=== PATIENT | female | born 1985 | race African-American/Black ===

== ENCOUNTER 2018-02-12 14:16 | Emergency (ER) | payer OTHER ==
[~2018-02-12] VITALS: Ht 162.6 cm; Wt 106.6 kg
--- OUTSIDE RECORDS SUMMARY | 2018-02-12 14:18 | XMS REPORT | Summary of Care ---
Author Author [facility] Organization [facility] Address Unknown Phone Unavailable Encounter HQ Encntr_alias(FIN) [id number] Date(s): 06/10/17 - 06/10/17 [facility] [address], [address] [place] [address]- [phone] Attending Physician: Elke Mccarthy DO Vital Signs No data available for this section Problem List Condition Effective Dates Status Health Status Informant Morbid Active obesity(Confirmed) None(Confirmed) Resolved Tenosynovitis, de Active Quervain(Confirmed) Tendonitis(Confirmed Resolved ) Allergies, Adverse Reactions, Alerts Substance Reaction Severity Status Capsin Active Medications No data available for this section Results No data available for this section Immunizations No data available for this section Procedures Procedure Date Related Diagnosis Body Site Status adenoidectomy 01/1987 Completed Social History Social History Type Response Employment/School Status: Employed. 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 Alcohol Current, Type Beer. Frequency: 1-2 times per month. Previous treatment: None. Alcohol use interferes with work or home: No. Drinks more than intended: No. Others hurt by drinking: No. Ready to change: No. Household alcohol concerns: No. Smoking Status Current every day smoker; Exposure to Tobacco Smoke None; Cigarette Smoking Last 365 Days Yes; Reg Smoking Cessation Counseling No entered on: 06/11/17 Assessment and Plan No data available for this section
--- OUTSIDE RECORDS SUMMARY | 2018-02-12 14:18 | XMS REPORT | Summary of Care ---
Author Author [facility] Address Unknown Phone Unavailable Encounter HQ Danitzantr_alifausto(FIN) [id number] Date(s): 03/17/17 - 03/17/[address] [facility] [address], [address] [place] [address]- [phone] Attending Physician: Rocio Suh MD Vital Signs No data available for this [...] Type Response Employment/School Status: Employed. Work/School description: director financial services aid/cook. Alcohol Current, Type Beer. Frequency: 1-2 [...]
--- OUTSIDE RECORDS SUMMARY | 2018-02-12 14:18 | XMS REPORT | Continuity of Care Document ---
Author Author [facility] Interface Address Unknown Phone Unavailable Problems Problem Status Onset Date Classification Date Reported Comments Source OTHER Active 03/14/2015 [facility] Discharge Diagnosis: Chest pain, musculoskeletal 01/23/2015 01/26/2015 [facility] Discharge Diagnosis: Bronchitis 01/23/2015 01/26/2015 [facility] CHEST PAIN Active 01/22/2015 [facility] None Resolved Problem 09/17/2017 [facility] Tendonitis Resolved Problem 09/17/2017 [facility] Morbid obesity Active Problem 09/17/2017 [facility] Tenosynovitis, de Quervain Active Problem 09/17/2017 [facility] Medications Medication Details Route Status Patient Instructions Ordering Provider Order Date Source ibuprofen 800 mg oral tablet 800 mg=1 tab, PO, Q8H, with food or milk, X 10 day, # 30 tab, 1 Refill(s), Pharmacy: [facility] [id number] No Longer Active 06/11/2017 [facility] Ibuprofen 600 MG Oral Tablet [Motrin] 600 mg=1 tab, PO, Q6H, PRN Pain, take with food, # 30 tab, 0 Refill(s) Active 01/23/2015 [facility] tramadol hydrochloride 50 MG Oral Tablet 50 mg=1 tab, PO, BID, X 15 day, # 10 tab, 0 Refill(s) Active 01/23/2015 [facility] 200 ACTUAT Albuterol 0.09 MG/ACTUAT Metered Dose Inhaler 1 puff, INHALATION, Q4H, PRN for wheezing, # 9 gm, 0 Refill(s) Active 01/23/2015 [facility] Azithromycin 5 Day Dose Pack 250 mg oral tablet See Instructions, Take 2 tablets by mouth the first day then 1 tablet by mouth days 2-5., X 5 day, # 6 tab, 0 Refill(s) Active 01/23/2015 [facility] Ketorolac 30 mg, 1 mL, Route: IVP, Drug form: INJ, ONCE, Dosing Weight 100, kg, Priority: STAT, Start date: 01/23/15 0:41:00, Stop date: 01/23/15 0:41:00Notes: (Same as:Toradol) IV bolus must be given >15 seconds. Give IM administration slowly and deeply into the muscle. Not for use > 4 days MEDICATION WASTE Product Size: 30 mg Product Wasted: ___ mg Inactive 01/23/2015 [facility] Sodium Chloride 0.154 MEQ/ML Injectable Solution 1,000 mL, 1000 ml/hr, Infuse Over: 1 hr, Route: IV, 1,000, Drug form: INJ, ONCE, Priority: STAT, Dosing Weight 100 kg, Start date: 01/23/15 0:41:00, Duration: 1 doses or times, Stop date: 01/23/15 0:41:00 Inactive 01/23/2015 [facility] Saline Flush 0.9% 10 mL, Route: IVP, Drug Form: INJ, Dosing Weight 100, kg, PRN, PRN Line Flush, Start date: 01/23/15 0:41:00, Duration: 30 day, Stop date: 02/22/15 0:40:00Notes: (Same as: BD Posiflush) Inactive 01/23/2015 [facility] Allergies, Adverse Reactions, Alerts Substance Category Reaction Severity Reaction type Status Date Reported Comments Source Capsin Assertion Drug allergy Active Medical Group Immunizations Immunization Date Given Site Status Last Updated Comments Source Results Order Name Results Value Reference Range Date Interpretation Comments Source CARDIAC ENZYMES CK MB null 0.5 - 3.6 01/23/2015 [facility] CARDIAC ENZYMES Troponin-I null 0.00 - 0.40 01/23/2015 [facility] CARDIAC ENZYMES Total CK 177 unit/L 12 - 191 01/23/2015 [facility] CARDIAC ENZYMES CK MB Index null 0.0 - 2.5 01/23/2015 [facility] DRUG SCREEN UDS Note See Note (01/23/15 1:15 AM) 01/23/2015 [facility] DRUG SCREEN U Phencyc Scr Negative *NA* (01/23/15 1:15 AM) Negative 01/23/2015 [facility] DRUG SCREEN U Opiate Scr Negative *NA* (01/23/15 1:15 AM) Negative 01/23/2015 [facility] DRUG SCREEN U Cannab Scr Negative *NA* (01/23/15 1:15 AM) Negative 01/23/2015 [facility] DRUG SCREEN U Cocaine Scr Negative *NA* (01/23/15 1:15 AM) Negative 01/23/2015 [facility] DRUG SCREEN U Benzodia Scr Positive *ABN* (01/23/15 1:15 AM) Negative 01/23/2015 [facility] DRUG SCREEN U Randi Scr Negative *NA* (01/23/15 1:15 AM) Negative 01/23/2015 [facility] DRUG SCREEN U Amph Scr Negative *NA* (01/23/15 1:15 AM) Negative 01/23/2015 [facility] ELECTROLYTES AGAP 9.3 meq/L 10.0 - 20.0 01/23/2015 [facility] ELECTROLYTES B/C Ratio 7 6 - 25 01/23/2015 [facility] ELECTROLYTES AST 33 unit/L 0 - 37 01/23/2015 [facility] ELECTROLYTES Bili Total 0.2 mg/dL 0.2 - 1.3 01/23/2015 [facility] ELECTROLYTES Total Protein 7.6 g/dL 6.4 - 8.4 01/23/2015 [facility] ELECTROLYTES eGFR 131 mL/min/1.73m2 01/23/2015 Result Comment: The eGFR is calculated using the CKD-EPI formula. In most young, healthy individuals the eGFR will be >90 mL/min/1.73m2. The eGFR declines with age. An eGFR of 60-89 may be normal in some populations, particularly the elderly, for whom the CKD-EPI formula has not been extensively validated. Use of the eGFR is not recommended in the following populations: Individuals with unstable creatinine concentrations, including patients and those with serious co-morbid conditions. Patients with extremes in muscle mass or diet. The data above are obtained from the National Kidney Disease Education Program (NKDEP) which additionally recommends that when the eGFR is used in patients with extremes of body mass index for purposes of drug dosing, the eGFR should be multiplied by the estimated BMI. [facility] ELECTROLYTES Potassium Lvl 3.3 meq/L 3.5 - 5.1 01/23/2015 [facility] ELECTROLYTES Chloride Lvl 104 meq/L 95 - 109 01/23/2015 [facility] ELECTROLYTES Creatinine Lvl 0.72 mg/dL 0.50 - 1.40 01/23/2015 [facility] ELECTROLYTES Sodium Lvl 140 meq/L 135 - 145 01/23/2015 [facility] ELECTROLYTES CO2 30 meq/L 24 - 32 01/23/2015 [facility] ELECTROLYTES Calcium Lvl 8.3 mg/dL 8.5 - 10.5 01/23/2015 [facility] ELECTROLYTES ALT 54 unit/L 0 - 65 01/23/2015 [facility] ELECTROLYTES Glucose Lvl 100 mg/dL 70 - 99 01/23/2015 [facility] ELECTROLYTES Alk Phos 64 unit/L 39 - 136 01/23/2015 [facility] ELECTROLYTES BUN 5 mg/dL 7 - 22 01/23/2015 [facility] ELECTROLYTES Albumin Lvl 3.3 g/dL 3.5 - 5.0 01/23/2015 [facility] ELECTROLYTES A/G Ratio 0.8 0.7 - 1.6 01/23/2015 [facility] ELECTROLYTES Globulin 4.3 g/dL 2.0 - 4.0 01/23/2015 [facility] HEMATOLOGY MCV 79.4 fL 80.0 - 98.0 01/23/2015 [facility] HEMATOLOGY Hct 33.6 % 36.0 - 48.0 01/23/2015 [facility] HEMATOLOGY Hgb 11.4 g/dL 12.0 - 16.0 01/23/2015 [facility] HEMATOLOGY RBC 4.23 M/CMM 4.20 - 5.40 01/23/2015 [facility] HEMATOLOGY WBC 10.6 K/CMM 3.7 - 10.4 01/23/2015 [facility] MCH 26.9 pg 27.0 - 31.0 01/23/2015 [facility] HEMATOLOGY RDW 17.6 % 11.5 - 14.5 01/23/2015 [facility] HEMATOLOGY Platelet 375 K/CMM 133 - 450 01/23/2015 [facility] HEMATOLOGY MCHC 33.8 g/dL 32.0 - 36.0 01/23/2015 [facility] HEMATOLOGY MPV 8.0 fL 7.4 - 10.4 01/23/2015 [facility] HEMATOLOGY Segs-Bands # 6.9 K/CMM 1.5 - 8.1 01/23/2015 [facility] HEMATOLOGY Basophils # 0.1 K/CMM 0.0 - 0.2 01/23/2015 [facility] HEMATOLOGY Eosinophils # 0.1 K/CMM 0.0 - 0.5 01/23/2015 [facility] HEMATOLOGY Monocytes # 0.7 K/CMM 0.0 - 0.8 01/23/2015 [facility] HEMATOLOGY Lymphocytes # 2.8 K/CMM 1.0 - 5.5 01/23/2015 [facility] HEMATOLOGY Segs 65.5 % 45.0 - 75.0 01/23/2015 [facility] HEMATOLOGY Monocytes 6.5 % 2.0 - 12.0 01/23/2015 [facility] HEMATOLOGY Eosinophils 1.3 % 0.0 - 4.0 01/23/2015 [facility] HEMATOLOGY Lymphocytes 26.1 % 20.0 - 40.0 01/23/2015 [facility] HEMATOLOGY Basophils 0.6 % 0.0 - 1.0 01/23/2015 [facility] URINE AND STOOL UA Mucus None Seen (01/23/15 1:15 AM) None Seen 01/23/2015 [facility] URINE AND STOOL UA pH 7.0 5.0 - 8.0 01/23/2015 [facility] URINE AND STOOL UA Nitrite Negative (01/23/15 1:15 AM) Negative 01/23/2015 [facility] URINE AND STOOL UA Blood Large *ABN* (01/23/15 1:15 AM) Negative 01/23/2015 [facility] URINE AND STOOL UA Urobilinogen 1.0 EU/dL 0.1 - 1.0 01/23/2015 [facility] URINE AND STOOL UA Glucose Negative (01/23/15 1:15 AM) Negative 01/23/2015 [facility] URINE AND STOOL UA Ketones Negative *NA* (01/23/15 1:15 AM) Negative 01/23/2015 [facility] URINE AND STOOL UA Bili Negative *NA* (01/23/15 1:15 AM) Negative 01/23/2015 [facility] URINE AND STOOL UA Leuk Est Trace *ABN* (01/23/15 1:15 AM) Negative 01/23/2015 [facility] URINE AND STOOL UA Sq Epi Few /LPF Few /LPF 01/23/2015 Result Comment: OCC CLUE CELLS OBSERVED [facility] URINE AND STOOL UA WBC 3-5 /HPF None Seen /HPF 01/23/2015 [facility] URINE AND STOOL UA Spec Grav <=1.005
*NA*
(01/23/15 1:15 AM) <=1.030 01/23/2015 [facility] URINE AND STOOL UA Protein Trace *ABN* (01/23/15 1:15 AM) Negative 01/23/2015 [facility] URINE AND STOOL UA RBC 3-5 /HPF 0 - 2 01/23/2015 [facility] URINE AND STOOL UA Bacteria Occasional /HPF None Seen /HPF 01/23/2015 [facility] URINE AND STOOL UA Turbidity Clear (01/23/15 1:15 AM) Clear 01/23/2015 [facility] URINE AND STOOL UA Color Yellow *NA* (01/23/15 1:15 AM) Yellow 01/23/2015 [facility] Chest 1view DX Chest 1view DX EXAM: CHEST 1 VIEW DATE: Jan 23, 2015 12:50:00 AM INDICATION: Chest pain COMPARISON: None. TECHNIQUE: AP chest radiograph. FINDINGS: Lungs are clear bilaterally No pleural effusion or pneumothorax is identified The cardiomediastinal contours are within normal limits. The skeleton is intact IMPRESSION: 1. No acute intrathoracic abnormality SL: 12 01/23/2015 - - Read by: Nancy Trujillo MD Dictated Date/time: 01/23/15 02:00 Electronically Signed by: Nancy Trujillo MD 01/23/15 02:00 FINAL REPORT [facility] Vital Signs Vital Sign Value Date Comments Source Temperature Oral (F) 97.9 F 06/11/2017 [facility] Respitory Rate 14 06/11/2017 [facility] Heart Rate 90 06/11/2017 [facility] Systolic (mm Hg) 126 06/11/2017 [facility] Diastolic (mm Hg) 80 06/11/2017 [facility] Height 163.83 cm 06/11/2017 [facility] Weight 102.273 06/11/2017 [facility] BMI Calculated 38.1 06/11/2017 [facility] Temperature Oral (F) 98.3 F 01/23/2015 [facility] Heart Rate 101 01/23/2015 [facility] Respitory Rate 18 01/23/2015 [facility] Systolic (mm Hg) 127 01/23/2015 [facility] Diastolic (mm Hg) 75 01/23/2015 [facility] Heart Rate 89 01/23/2015 [facility] Systolic (mm Hg) 119 01/23/2015 [facility] Diastolic (mm Hg) 79 01/23/2015 [facility] Respitory Rate 24 01/23/2015 [facility] Respitory Rate 14 01/23/2015 [facility] Heart Rate 98 01/23/2015 [facility] Systolic (mm Hg) 139 01/23/2015 [facility] Diastolic (mm Hg) 73 01/23/2015 [facility] Weight 100 01/23/2015 [facility] Height 163.83 cm 01/23/2015 [facility] BMI Calculated 37.26 01/23/2015 [facility] Temperature Oral (F) 98.3 F 01/23/2015 [facility] Height 165.1 cm 08/14/2014 [facility] BMI Calculated 40.02 08/14/2014 [facility] Weight 109.091 08/14/2014 [facility] Temperature Oral (F) 98.2 F 08/14/2014 [facility] Heart Rate 83 08/14/2014 [facility] Respitory Rate 16 08/14/2014 [facility] Systolic (mm Hg) 129 08/14/2014 [facility] Diastolic (mm Hg) 93 08/14/2014 [facility] Encounters Location Location Details Encounter Type Encounter Number Reason For Visit Attending Provider ADM Date DC Date Status Source [facility] [id number] Arthur Salazar 08/14/2014 08/14/2014 [facility] [id number] Augusto Hugh 01/23/2015 01/23/2015 [facility] Ambulatory Pre-Reg [id number] Rocio Suh 03/17/2017 03/17/2017 [facility] Ambulatory Pre-Reg [id number] Deedee Hinojosa 06/10/2017 06/10/2017 [facility] Outpatient [id number] DEEDEE HINOJOSA 06/11/2017 [facility] Primary [facility]patient [id number] Deedee Hinojosa 06/11/2017 06/12/2017 [facility] Outpatient [id number] LOWELL VILLARREAL 08/10/2017 [facility] Primary [facility] Ambulatory Pre-Reg [id number] Lowell Villarreal 08/10/2017 08/10/2017 [facility] Procedures Procedure Code Date Perfomer Comments Source adenoidectomy [id number] 01/07/1987 [facility] adenoidectomy [id number] 01/07/1987 [facility]
--- OUTSIDE RECORDS SUMMARY | 2018-02-12 14:18 | XMS REPORT | Summary of Care ---
Author Author [facility] Organization [facility] Address Unknown Phone Unavailable Encounter HQ Encntr_alias(FIN) [id number] Date(s): 08/10/17 - 08/10/17 [facility] [address], [address] [place] [address]- [phone] Attending Physician: Lowell Soliz MD Vital Signs No data available for [...] Type Response Employment/School Status: Employed. Work/School description: social services director aid/cook. Alcohol Current, Type Beer. Frequency: 1-2 [...]
--- OUTSIDE RECORDS SUMMARY | 2018-02-12 14:18 | XMS REPORT | Summary of Care ---
Author Author [facility]AB[facility] Hoover, MERT Organization Unknown Address Unknown Phone Unavailable Care Team Providers [facility] Name Role Phone MERT GRIFFIN M.D. Unavailable Unavailable DULCE LY [place], ABISAI NATHAN Unavailable Unavailable Functional Status Name Dates Details Functional status health issues are not documented Status: Name Dates Details Cognitive status health issues are not documented Status: Problems Name Dates Details Active medical history not documented Status: Medications Name Dates Details Medications not documented Allergies and Adverse Reactions Name Dates Details Allergy history not documented Status: Procedures Procedure Dates Details [U] XRAY FOOT MIN 3 VWS RIGHT [id number] Date: 14-Jul-2017 Immunization Name Dates Details Immunizations not documented Social History Name Dates Details Unknown if ever smoked Vital Signs Date Test Result Details No Known Vitals to report Results Date Description Value Details Results not documented Plan of Care Name Dates Details Planned Observations Planned Goals not documented Interventions Provided Labs/Procedures/Imaging* [U] XRAY FOOT MIN 3 VWS RIGHT [id number]; To Be Done: 15 Jul 2017 Instructions Name Dates Details Instructions not documented Encounters Appointment; ABISAI CARDONA Encounter Diagnosis: Problem not documented On: 16-Jun-2017 9:30 Appointment; MERT GRIFFIN M.D. Encounter Diagnosis: Problem not documented On: 15-Jul-2017 10:30
--- OUTSIDE RECORDS SUMMARY | 2018-02-12 14:18 | XMS REPORT | Summary of Care ---
Author Author [facility] Organization [facility] Address Unknown Phone Unavailable Encounter HQ Zak(FIN) [id number] Date(s): 06/11/17 - 06/11/17 [facility] [address], [address] [place] [address]- [phone] Discharge Disposition: Home or Self Care Attending Physician: Elke Mccarthy DO Vital Signs Most recent to 1 oldest [Reference Range]: Height 163.83 cm (06/11/17 1:30 PM) Temperature Oral 97.9 DegF [96.4-99.1 DegF] (06/11/17 1:30 PM) Blood Pressure 126/80 mmHg [90-140/60-90 mmHg] (06/11/17 1:30 PM) Respiratory Rate 14 BRMIN [14-20 BRMIN] (06/11/17 1:30 PM) Peripheral Pulse 90 bpm Rate [60-100 bpm] (06/11/17 1:30 PM) Weight 102.273 kg (06/11/17 1:30 PM) Body Mass Index 38.1 m2 (06/11/17 1:30 PM) Problem List Condition Effective Dates Status Health Status Informant Morbid Active obesity(Confirmed) None(Confirmed) Resolved Tenosynovitis, de Active Quervain(Confirmed) Tendonitis(Confirmed Resolved ) Allergies, Adverse Reactions, Alerts Substance Reaction Severity Status Capsin Active Medications ibuprofen 800 mg oral tablet 800 mg=1 tab, PO, Q8H, with food or milk, X 10 day, # 30 tab, 1 Refill(s), Pharm acy: [facility] [id number] Start Date: 06/11/17 Stop Date: 07/01/17 Status: Completed Results No data available for this section Immunizations No data available for this section Procedures Procedure Date Related Diagnosis Body Site Status adenoidectomy 01/1987 Completed Social History Social History Type Response Employment/School Status: Employed. Work/School description: hvac services professional aid/cook. Alcohol Current, Type Beer. Frequency: 1-2 [...]
--- OUTSIDE RECORDS SUMMARY | 2018-02-12 14:18 | XMS REPORT | Summary of Care ---
Author Author [facility] Organization [facility] Address Unknown Phone Unavailable Encounter HQ Sandeepr_khadar(FIN) [id number] Date(s): 03/17/17 - 03/17/17 [facility] [address], [address] [place] [address]- [phone] Attending Physician: Rocio Suh MD Vital Signs No data available for this section Problem List Condition Effective Dates Status Health Status Informant None(Confirmed) Resolved Tendonitis(Confirmed Resolved ) Allergies, Adverse Reactions, Alerts Substance Reaction Severity Status Capsin Active Medications No data available for this section Results No data available for this section Immunizations No data available for this section Procedures Procedure Date Related Diagnosis Body Site Status adenoidectomy 01/1987 Completed Social History Social History Type Response Alcohol Current, Type Beer. Frequency: 1-2 times per month. Previous treatment: None. Alcohol use interferes with work or home: No. Drinks more than intended: No. Others hurt by drinking: No. Ready to change: No. Household alcohol concerns: No. Smoking Status Current every day smoker; Exposure to Tobacco Smoke None; Cigarette Smoking Last 365 Days Yes; Reg Smoking Cessation Counseling No entered on: 01/23/15 Assessment and Plan No data available for this section
--- OUTSIDE RECORDS SUMMARY | 2018-02-12 14:18 | XMS REPORT | Summary of Care ---
Author Author [facility] Organization [facility] Address Unknown Phone Unavailable Encounter RAYMUNDO Crespo(LUIS) [id number] Date(s): 01/23/15 - 01/23/15 [facility] [address] [place] [address]- Discharge Diagnosis: Chest pain, musculoskeletal Discharge Diagnosis: Bronchitis Discharge Disposition: Home Attending Physician: Augusto Reese MD Vital Signs 1 2 3 Most recent to oldest [Reference Range]: 163.83 cm (01/23/15 12:09 AM) Height 98.3 DegF (01/23/15 2:46 AM) 98.3 DegF (01/23/15 12:09 AM) Temperature Oral [96.4-99.1 DegF] 127/75 mmHg (01/23/15 2:46 AM) 119/79 mmHg (01/23/15 1:45 AM) 139/73 mmHg (01/23/15 1:15 AM) Blood Pressure [90-140/60-90 mmHg] 18 BRMIN (01/23/15 2:46 AM) 24 BRMIN *HI* (01/23/15 1:45 AM) 14 BRMIN (01/23/15 1:15 AM) Respiratory Rate [14-20 BRMIN] 101 bpm *HI* (01/23/15 2:46 AM) 89 bpm (01/23/15 1:45 AM) 98 bpm (01/23/15 1:15 AM) Peripheral Pulse Rate [60-100 bpm] 100 kg (01/23/15 12:09 AM) Weight 37.26 m2 (01/23/15 12:09 AM) Body Mass Index Problem List Condition Effective Dates Status Health Status Informant None(Confirmed) Resolved Tendonitis(Confirmed Resolved ) Allergies, Adverse Reactions, Alerts Substance Reaction Severity Status NKDA Active Medications albuterol 90 mcg/inh inhalation aerosol 1 puff, INHALATION, Q4H, PRN for wheezing, # 9 gm, 0 Refill(s) Start Date: 01/23/15 Status: Ordered Azithromycin 5 Day Dose Pack 250 mg oral tablet See Instructions, Take 2 tablets by mouth the first day then 1 tablet by mouth d ays 2-5., X 5 day, # 6 tab, 0 Refill(s) Start Date: 01/23/15 Stop Date: 01/28/15 Status: Ordered ketOROLAC 30 mg, 1 mL, Route: IVP, Drug form: INJ, ONCE, Dosing Weight 100, kg, Priority: STAT, Start date: 01/23/15 0:41:00, Stop date: 01/23/15 0:41:00 Notes: (Same as:Toradol) IV bolus must be given >15 seconds. Give IM administration slowly and deeply into the muscle.Not for use > 4 days MEDICATION WASTE Product Size: 30 mgProduct Wasted: ___ mg Start Date: 01/23/15 Stop Date: 01/23/15 Status: Completed Motrin 600 mg oral tablet 600 mg=1 tab, PO, Q6H, PRN Pain, take with food, # 30 tab, 0 Refill(s) Start Date: 01/23/15 Status: Ordered Saline Flush 0.9% 10 mL, Route: IVP, Drug Form: INJ, Dosing Weight 100, kg, PRN, PRN Line Flush, S tart date: 01/23/15 0:41:00, Duration: 30 day, Stop date: 02/22/15 0:40:00 Notes: (Same as: BD Posiflush) Start Date: 01/23/15 Stop Date: 01/23/15 Status: Discontinued Sodium Chloride 0.9% (Bolus) IV 1,000 mL, 1000 ml/hr, Infuse Over: 1 hr, Route: IV, 1,000, Drug form: INJ, ONCE, Priority: STAT, Dosing Weight 100 kg, Start date: 01/23/15 0:41:00, Duration: 1 doses or times, Stop date: 01/23/15 0:41:00 Start Date: 01/23/15 Stop Date: 01/23/15 Status: Completed tramadol 50 mg oral tablet 50 mg=1 tab, PO, BID, X 15 day, # 10 tab, 0 Refill(s) Start Date: 01/23/15 Stop Date: 02/07/15 Status: Ordered Results ELECTROLYTES Most recent to 1 oldest [Reference Range]: Sodium Lvl [135-145 140 mEq/L mEq/L] (01/23/15 1:15 AM) Potassium Lvl 3.3 mEq/L [3.5-5.1 mEq/L] *LOW* (01/23/15 1:15 AM) Chloride Lvl [95-109 104 mEq/L mEq/L] (01/23/15 1:15 AM) CO2 [24-32 mEq/L] 30 mEq/L (01/23/15 1:15 AM) AGAP [10.0-20.0 9.3 mEq/L mEq/L] *LOW* (01/23/15 1:15 AM) CHEM PANEL Most recent to 1 oldest [Reference Range]: Creatinine Lvl 0.72 mg/dL [0.50-1.40 mg/dL] (01/23/15 1:15 AM) eGFR 131 mL/min/1.73m2 1 *NA* (01/23/15 1:15 AM) BUN [7-22 mg/dL] 5 mg/dL *LOW* (01/23/15 1:15 AM) B/C Ratio [6-25] 7 (01/23/15 1:15 AM) Glucose Lvl [70-99 100 mg/dL mg/dL] *HI* (01/23/15 1:15 AM) Total Protein 7.6 g/dL [6.4-8.4 g/dL] (01/23/15 1:15 AM) Albumin Lvl [3.5-5.0 3.3 g/dL g/dL] *LOW* (01/23/15 1:15 AM) Globulin [2.0-4.0 4.3 g/dL g/dL] *HI* (01/23/15 1:15 AM) A/G Ratio [0.7-1.6] 0.8 (01/23/15 1:15 AM) Calcium Lvl 8.3 mg/dL [8.5-10.5 mg/dL] *LOW* (01/23/15 1:15 AM) ALT [0-65 unit/L] 54 unit/L (01/23/15 1:15 AM) AST [0-37 unit/L] 33 unit/L (01/23/15 1:15 AM) Alk Phos [39-136 64 unit/L unit/L] (01/23/15 1:15 AM) Bili Total [0.2-1.3 0.2 mg/dL mg/dL] (01/23/15 1:15 AM) 1Result Comment: The eGFR is calculated using the [...] from the National Kid[employer] Disease Education Program ( NKDEP) which additionally recommends that when the eGFR is used in patients with extremes of body mass index for purposes of drug dosing, the eGFR should be mul tiplied by the estimated BMI. CARDIAC ENZYMES Most recent to 1 oldest [Reference Range]: Total CK [12-191 177 unit/L unit/L] (01/23/15 1:15 AM) CK MB [0.5-3.6 <0.5 ng/mL ng/mL] (01/23/15 1:15 AM) CK MB Index <0.3 [0.0-2.5] (01/23/15 1:15 AM) Troponin-I <0.02 ng/mL [0.00-0.40 ng/mL] (01/23/15 1:15 AM) DRUG SCREEN Most recent to 1 oldest [Reference Range]: U Amph Scr Negative [Negative] *NA* (01/23/15 1:15 AM) U Randi Scr Negative [Negative] *NA* (01/23/15 1:15 AM) U Benzodia Scr Positive [Negative] *ABN* (01/23/15 1:15 AM) U Cocaine Scr Negative [Negative] *NA* (01/23/15 1:15 AM) U Opiate Scr Negative [Negative] *NA* (01/23/15 1:15 AM) U Phencyc Scr Negative [Negative] *NA* (01/23/15 1:15 AM) U Cannab Scr Negative [Negative] *NA* (01/23/15 1:15 AM) UDS Note See Note (01/23/15 1:15 AM) URINE AND STOOL Most recent to 1 oldest [Reference Range]: UA Turbidity [Clear] Clear (01/23/15 1:15 AM) UA Color [Yellow] Yellow *NA* (01/23/15 1:15 AM) UA pH [5.0-8.0] 7.0 (01/23/15 1:15 AM) UA Spec Grav <=1.005 [<=1.030] *NA* (01/23/15 1:15 AM) UA Glucose Negative [Negative] (01/23/15 1:15 AM) UA Blood [Negative] Large *ABN* (01/23/15 1:15 AM) UA Ketones Negative [Negative] *NA* (01/23/15 1:15 AM) UA Protein Trace [Negative] *ABN* (01/23/15 1:15 AM) UA Urobilinogen 1.0 EU/dL [0.1-1.0 EU/dL] (01/23/15 1:15 AM) UA Bili [Negative] Negative *NA* (01/23/15 1:15 AM) UA Leuk Est Trace [Negative] *ABN* (01/23/15 1:15 AM) UA Nitrite Negative [Negative] (01/23/15 1:15 AM) UA WBC [None Seen 3-5 /HPF /HPF] (01/23/15 1:15 AM) UA RBC [0-2 /HPF] 3-5 /HPF *ABN* (01/23/15 1:15 AM) UA Bacteria [None Occasional /HPF Seen /HPF] (01/23/15 1:15 AM) UA Sq Epi [Few /LPF] Few /LPF 1 (01/23/15 1:15 AM) UA Mucus [None Seen] None Seen (01/23/15 1:15 AM) 1Result Comment: OCC CLUE CELLS OBSERVED HEMATOLOGY Most recent to 1 oldest [Reference Range]: WBC [3.7-10.4 K/CMM] 10.6 K/CMM *HI* (01/23/15 1:15 AM) RBC [4.20-5.40 4.23 M/CMM M/CMM] (01/23/15 1:15 AM) Hgb [12.0-16.0 g/dL] 11.4 g/dL *LOW* (01/23/15 1:15 AM) Hct [36.0-48.0 %] 33.6 % *LOW* (01/23/15 1:15 AM) MCV [80.0-98.0 fL] 79.4 fL *LOW* (01/23/15 1:15 AM) MCH [27.0-31.0 pg] 26.9 pg *LOW* (01/23/15 1:15 AM) MCHC [32.0-36.0 33.8 g/dL g/dL] (01/23/15 1:15 AM) RDW [11.5-14.5 %] 17.6 % *HI* (01/23/15 1:15 AM) Platelet [133-450 375 K/CMM K/CMM] (01/23/15 1:15 AM) MPV [7.4-10.4 fL] 8.0 fL (01/23/15 1:15 AM) Segs [45.0-75.0 %] 65.5 % (01/23/15 1:15 AM) Lymphocytes 26.1 % [20.0-40.0 %] (01/23/15 1:15 AM) Monocytes [2.0-12.0 6.5 % %] (01/23/15 1:15 AM) Eosinophils [0.0-4.0 1.3 % %] (01/23/15 1:15 AM) Basophils [0.0-1.0 0.6 % %] (01/23/15 1:15 AM) Segs-Bands # 6.9 K/CMM [1.5-8.1 K/CMM] (01/23/15 1:15 AM) Lymphocytes # 2.8 K/CMM [1.0-5.5 K/CMM] (01/23/15 1:15 AM) Monocytes # [0.0-0.8 0.7 K/CMM K/CMM] (01/23/15 1:15 AM) Eosinophils # 0.1 K/CMM [0.0-0.5 K/CMM] (01/23/15 1:15 AM) Basophils # [0.0-0.2 0.1 K/CMM K/CMM] (01/23/15 1:15 AM) Immunizations No data available for this section Procedures Procedure Date Related Diagnosis Body Site adenoidectomy 01/1987 Social History Social History Type Response Alcohol [...] Days Yes; Reg Smoking Cessation Counseling No Assessment and Plan No data available for this section
--- OUTSIDE RECORDS SUMMARY | 2018-02-12 14:18 | XMS REPORT | Summary of Care ---
Author Organization Unknown Address Unknown Phone Unavailable Encounter [facility] Z[facility](LUIS) [id number] Date(s): 08/14/14 - 08/14/14 [facility] [address] [place] [address]- Discharge Disposition: Non-Emergent Physician Attending: Arthur Salazar MD Vital Signs Most recent to 1 oldest [Reference Range]: Height 165.1 cm (08/14/14 11:05 AM) Temperature Oral 98.2 DegF [96.4-99.1 DegF] (08/14/14 11:05 AM) Blood Pressure 129/93 mmHg [90-140/60-90 mmHg] (08/14/14 11:05 AM) Respiratory Rate 16 BRMIN [14-20 BRMIN] (08/14/14 11:05 AM) Peripheral Pulse 83 bpm Rate [60-100 bpm] (08/14/14 11:05 AM) Weight 109.091 kg (08/14/14 11:05 AM) Body Mass Index 40.02 m2 (08/14/14 11:05 AM) Problem List Condition Effective Dates Status Health Status Informant None(Confirmed) Resolved Allergies, Adverse Reactions, Alerts Substance Reaction Severity Status NKDA Active Medications No data available for this section Results No data available for this section Immunizations No data available for this section Procedures No data available for this section Social History Social History Type Response Smoking Status Current every day smoker; Exposure to Tobacco Smoke None; Cigarette Smoking Last 365 Days Yes; Reg Smoking Cessation Counseling No Assessment and Plan No data available for this section
[2018-02-12] MEDS ORDERED: KETOROLAC TROMETHAMINE 60 MG/2 ML VIAL IM ONE (15:15)
[2018-02-12] MEDS ORDERED: DEXAMETHASONE SOD PHOS 10 MG/1 ML VIAL IM ONE (15:15)
--- NOTE | 2018-02-12 15:46 | Diagnostic Imaging Report ---
Exam: Right knee radiographs, 3 views History: Pain, swelling. Comparison: <None.> Findings: There is normal bone mineralization. No evidence of acute fracture or malalignment. The joint spaces are preserved. Small suprapatellar joint effusion. No evidence of soft tissue mildly. Impression: No acute osseous abnormality. Small suprapatellar joint effusion. Signed by: Dr. Lydia Tomlinson MD on 02/12/2018 3:43 PM
[2018-02-12] MEDS ORDERED: KETOROLAC TROME10 MG PO (16:16)
[2018-02-12] MEDS ORDERED: PREDNISONE20 MG PO (16:16)
[2018-02-12 16:29] VITALS: BP 144/98
== END 2018-02-12 16:35 | disposition home or self-care (01) ==
LOC: ER 14:16
DX: M70.41 Prepatellar bursitis, right knee (principal)
CPT/HCPCS: 36415; 73562; 84550; 99283; J1100; J1885